=== PATIENT | male | born 1960 | race Hispanic/Latino ===

== ENCOUNTER 2017-05-04 12:00 | Emergency (ER) | payer OTHER ==
[2017-05-04 13:05] LABS: Hematocrit 45.4 % (35.5-45.6); Hemoglobin 15.2 gm/dl (11.8-15.2); Mean Corpuscular HGB Conc 34 % (32-34); Mean Corpuscular Hemoglobin 32 pg (28-32); Mean Corpuscular Volume 95 fl (84-94); Platelet Count 220 K/mm3 (140-440); Red Blood Count 4.79 M/mm3 (3.65-5.03); Red Cell Distribution Width 13.9 % (13.2-15.2)
[2017-05-04 13:24] LABS: Anion Gap 23 mmol/L; BUN/Creatinine Ratio 11.42; Blood Urea Nitrogen 8 mg/dL (9-20); Calcium 8.7 mg/dL (8.4-10.2); Carbon Dioxide 23 mmol/L (22-30); Glucose 128 mg/dL (75-100); Sodium 139 mmol/L (137-145)
[2017-05-04 13:47] LABS: Urine Drugs of Abuse Note Disclamer
[2017-05-04 13:52] LABS: Creatine Kinase MB 1.6 ng/mL (0.0-4.0)
[2017-05-04 13:53] LABS: Creatine Kinase 91 units/L (55-170)
--- NOTE | 2017-05-04 15:19 | Emergency Department Report ---
- General Chief complaint: Weakness Stated complaint: NOT FEELING WELL Time Seen by Provider: 05/04/17 14:32 Source: patient, EMS Mode of arrival: Stretcher Limitations: No Limitations - History of Present Illness MD Complaint: generalized weakness -: Gradual Location: generalized Severity: mild Severity scale (0 -10): 2 Consistency: intermittent, now resolved Improves with: none Worsens with: none Associated Symptoms: denies: chest pain, confusion, dark stools, diaphoresis, dysuria, easy bruising, fever/chills, loss of appetite, nausea/vomiting, myalgias, rash, shortness of breath, syncope - Related Data Allergies Allergy/AdvReac Type Severity Reaction Status Date / Time Unable to Assess Allergy Unverified 05/04/17 12:09 ED Review of Systems ROS: Stated complaint: NOT FEELING WELL Other details as noted in HPI Comment: All other systems reviewed and negative ED Past Medical Hx - Past Medical History Hx Hypertension: Yes - Surgical History Hx Appendectomy: Yes - Social History Smoking Status: Current Every Day Smoker Substance Use Type: Alcohol ED Physical Exam - General Limitations: No Limitations General appearance: alert, in no apparent distress - Head Head exam: Present: atraumatic, normocephalic - Eye Eye exam: Present: normal appearance - ENT ENT exam: Present: mucous membranes moist - Neck Neck exam: Present: normal inspection - Respiratory Respiratory exam: Present: normal lung sounds bilaterally. Absent: respiratory distress - Cardiovascular Cardiovascular Exam: Present: regular rate, normal rhythm. Absent: systolic murmur, diastolic murmur, rubs, gallop - GI/Abdominal GI/Abdominal exam: Present: soft, normal bowel sounds - Rectal Rectal exam: Present: deferred - Extremities Exam Extremities exam: Present: normal inspection - Back Exam Back exam: Present: normal inspection - Neurological Exam Neurological exam: Present: alert, oriented X3 - Psychiatric Psychiatric exam: Present: normal affect, normal mood - Skin Skin exam: Present: warm, dry, intact, normal color. Absent: rash ED Course Vital Signs 05/04/17 05/04/17 05/04/17 12:01 13:14 13:15 Temperature 98.6 F 98.3 F Pulse Rate 105 H 82 Respiratory 18 20 20 Rate Blood Pressure 148/94 Blood Pressure 132/91 [Left] O2 Sat by Pulse 94 97 97 Oximetry ED Medical Decision Making - Lab Data Result diagrams: 05/04/17 12:52 05/04/17 12:52 - EKG Data Interpretation: no acute changes - Medical Decision Making patient doing well, eating in the ER, has no compliaintswill dc and followup Critical care attestation.: If time is entered above; I have spent that time in minutes in the direct care of this critically ill patient, excluding procedure time. ED Disposition Clinical Impression: Weakness Disposition: DC-01 TO HOME OR SELFCARE Is pt being admited?: No Does the pt Need Aspirin: No Condition: Good Instructions: Weakness (ED) Referrals: PRIMARY CARE, [Primary Care Provider] - 3-5 Days Time of Disposition: 15:19
[2017-05-04 16:06] VITALS: BP 144/96
== END 2017-05-04 16:05 | disposition home or self-care (01) ==
LOC: ED 12:00
DX: R53.1 Weakness (principal); I10 Essential (primary) hypertension; F17.200 Nicotine dependence, unspecified, uncomplicated
CPT/HCPCS: 36415; 80048; 80307; 82550; 82553; 84484; 85027; 93005